=== PATIENT | male | born 1995 | race Two or more races ===

== ENCOUNTER 2016-11-23 19:13 | Emergency (ER) | payer MEDICAID ==
[~2016-11-23] VITALS: Ht 167.6 cm; Wt 68.0 kg
[~2016-11-23 19:13] MED LIST: ADVIL LIQUI-GE200 MG ORAL; ALBUTEROL SULF8.5 GM INH; AZITHROMYCIN250 MG ORAL; CLINDAMYCIN HC150 MG ORAL; GUAIFENESIN1200 MG PO; NKM; PHENERGAN6.25 MG/5 ORAL; PREDNISONE20 MG ORAL; PROMETHAZINE-C118 M1 ORAL; PROMETHAZINE-D118 ML ORAL; TYLENOL EXTRA500 MG ORAL; ZITHROMAX250 MG ORAL; ZOFRAN4 MG ORAL
[2016-11-23 19:35] VITALS: BP 130/67
--- NOTE | 2016-11-23 20:13 | Emergency Room Report ---
History of Present Illness General Chief Complaint: Upper Respiratory Illness Source: Patient Present Illness HPI The patient is a 20-year-old male presenting for cough. The patient has presented to this emergency department 6 times now for the same complaint. The patient has been diagnosed with pharyngitis, bronchitis, and pneumonia. The patient has been prescribed amoxicillin and azithromycin and states that symptoms to decrease but then returned. The pt states the cough syrup is what helps him the most. The patient denies any medical history including asthma. The patient states that the symptoms are now sore throat, cough, and subjective fever. The patient denies any other symptoms Allergies: Uncoded Allergies: PENICILLIN (Allergy, Unknown, 12/09/15) Patient History Past Medical History: see triage record Pertinent Family History: none Social History: Reports: smoking Reviewed Nursing Documentation: PMH: Agreed, PSxH: Agreed Nursing Documentation-PMH Past Medical History Deferred: Patient Unconscious Hx COPD: Yes - Bronchitis Review of Systems All Other Systems: negative except mentioned in HPI Physical Exam Vital Signs Date Time Temp Pulse Resp B/P Pulse Ox O2 Delivery O2 Flow Rate FiO2 11/23/16 19:18 99.0 120 18 125/73 94 Room Air Sp02 EP Interpretation: reviewed, normal General Appearance: no apparent distress, alert, GCS 15, non-toxic Head: normocephalic, atraumatic Eyes: bilateral eye PERRL, bilateral eye normal inspection ENT: hearing grossly normal, normal pharynx, no angioedema, normal voice, TMs + canals normal, uvula midline, moist mucus membranes Neck: full range of motion, supple/symm/no masses Respiratory: chest non-tender, lungs clear, normal breath sounds, no respiratory distress, no accessory muscle use, no wheezing, speaking full sentences Cardiovascular #1: regular rate, rhythm, no edema Musculoskeletal: back normal, gait/station normal, normal range of motion, non- tender Neurologic: alert, oriented x3, responsive, motor strength/tone normal, sensory intact, speech normal Psychiatric: judgement/insight normal, memory normal, mood/affect normal, no suicidal/homicidal ideation Skin: normal color, no rash, warm/dry, well hydrated Lymphatic: no adenopathy Medical Decision Making PA Attestation Dr. Bach is my supervising physician. Patient management was discussed with my supervising physician Diagnostic Impression: Primary Impression: Cough ER Course The patient is a 20-year-old male presenting for cough. Differential diagnosis include but not limited to pharyngitis, sinusitis, AOM, bronchitis, PNA PE: vitals wnl. NAD HEENT exam is unremarkable. No tonsillar edema or erythema. No exudate. No lymphadenopathy. Lungs are clear to auscultation bilaterally Chest x-ray remarkable The patient is asking for cough medication refill. The patient is advised that since he has been treated multiple times for the same symptoms without significant benefit, he will have to go elsewhere. The pt appears to value cough medication prescription as the most important reason for the visit. Chest X-Ray Diagnostic Results EP Interpretation: Yes Findings: no consolidation, no effusion, no pneumothorax Number of Views: 1 PA Scribe Text I am acting as scribe for my supervising physician. My supervising physician's interpretation of the chest xrays are there is no consolidation, no effusion, no acute cardiopulmonary disease, no pneumothorax Last Vital Signs Date Time Temp Pulse Resp B/P Pulse Ox O2 Delivery O2 Flow Rate FiO2 11/23/16 19:35 99.0 107 19 130/67 100 Room Air Status: improved Disposition: HOME, SELF-CARE Condition: Improved Referrals: [facility],REFERRING (PCP) NITHYA COPPOLA Nov 23, 2016 20:13
[2016-11-23 20:28] VITALS: BP 114/59
--- NOTE | 2016-11-24 11:56 | Diagnostic Imaging Report ---
Indication: Chest Pain Comparison: None A single view chest radiograph was obtained. Findings: Cardiomediastinal appearance is within normal limits for age. Pulmonary vascularity is appropriate. The diaphragmatic contour is smooth and costophrenic angles are sharp. No pleural effusions are identified. The bones are unremarkable. Impression: No acute findings
== END 2016-11-23 20:32 | disposition home or self-care (01) ==
LOC: EMR 19:30
DX: R05 Cough (principal); R07.0 Pain in throat; Z88.0 Allergy status to penicillin
CPT/HCPCS: 71010; 99283

== ENCOUNTER 2017-03-12 22:03 | Emergency (ER) | payer MEDICAID ==
[~2017-03-12] VITALS: Ht 170.2 cm; Wt 68.0 kg
--- NOTE | 2017-03-12 22:26 | Emergency Room Report ---
History of Present Illness General Chief Complaint: General Complaint Source: Patient Present Illness HPI Is a 21-year-old male with no past history. He presents here with chief complaint of a lump in his head. He found out about it couple days ago when he was filling it. No other injury. No nausea vomiting. No weight loss. He was concerned as when he came in. No trauma Allergies: Uncoded Allergies: PENICILLIN (Allergy, Unknown, 12/09/15) Patient History Past Medical History: see triage record, old chart reviewed Past Surgical History: none Pertinent Family History: none Social History: Reports: smoking Immunizations: other Reviewed Nursing Documentation: PMH: Agreed, PSxH: Agreed Nursing Documentation-PMH Hx COPD: Yes - Bronchitis Review of Systems Eye: Denies: blurred vision, eye pain ENT: Denies: ear pain, nose congestion, throat swelling Respiratory: Denies: cough, shortness of breath Cardiovascular: Denies: chest pain, palpitations Gastrointestinal: Denies: abdominal pain, diarrhea, nausea, vomiting Musculoskeletal: Denies: back pain, joint pain Skin: Denies: rash Neurological: Denies: headache, numbness Endocrine: Denies: increased thirst, increased urine Hematologic/Lymphatic: Denies: easy bruising All Other Systems: negative except mentioned in HPI Physical Exam Vital Signs Date Time Temp Pulse Resp B/P Pulse Ox O2 Delivery O2 Flow Rate FiO2 03/12/17 22:09 98.2 65 16 117/62 98 Room Air vitals normal Sp02 EP Interpretation: reviewed, normal General Appearance: well appearing, no apparent distress, alert Head: normocephalic, atraumatic Eyes: bilateral eye EOMI, bilateral eye PERRL ENT: hearing grossly normal, normal pharynx Neck: full range of motion, supple, no meningismus Respiratory: chest non-tender, lungs clear, normal breath sounds Cardiovascular #1: regular rate, rhythm, no murmur Gastrointestinal: normal bowel sounds, non tender, no mass, no organomegaly, no bruit, non-distended Musculoskeletal: back normal, gait/station normal, normal range of motion Psychiatric: mood/affect normal Skin: warm/dry Medical Decision Making Diagnostic Impression: Primary Impression: Encounter for generalized patient complaints Additional Impression: Normal exam ER Course Patient presents with a lump on his skull. What he pointed to is his Lamboidal suture. There is no infection. No trauma. patient Is reassured. Last Vital Signs Date Time Temp Pulse Resp B/P Pulse Ox O2 Delivery O2 Flow Rate FiO2 03/12/17 22:09 98.2 65 16 117/62 98 Room Air Status: unchanged Disposition: HOME, SELF-CARE Condition: Stable Additional Instructions: Followup with your Dr. in 7 days as needed. Return if worse. JAELYN GALVAN M.D. March 12, 2017 22:26
[2017-03-12 22:41] VITALS: BP 117/62
== END 2017-03-12 22:45 | disposition home or self-care (01) ==
LOC: EMR 22:25
DX: Z76.89 Persons encountering health services in other specified circumstances (principal); Z88.0 Allergy status to penicillin; R22.0 Localized swelling, mass and lump, head; Z72.0 Tobacco use; Z87.09 Personal history of other diseases of the respiratory system
CPT/HCPCS: 99282

== ENCOUNTER 2018-03-15 12:50 | Emergency (ER) | payer MEDICAID ==
[~2018-03-15] VITALS: Ht 170.2 cm; Wt 74.8 kg
[2018-03-15 13:02] VITALS: BP 120/74
--- NOTE | 2018-03-15 13:09 | Emergency Room Report ---
History of Present Illness General Chief Complaint: Flu Like Symptoms Present Illness HPI 22-year-old male patient presents to ER complaining of cough and sore throat past few days. reports coughing up sputum, denies hemoptysis. Denies fever. Denies other symptoms. Reports history of sick contacts at home. reports sore throat began after cough, reports able to eat and drink but painful to do so. Reports smokes marijuana frequently. denies chest pain, shortness breath, abdominal pain. Reports history of bronchitis, states has an inhaler but ran out of the medication. Allergies: Coded Allergies: PENICILLINS (Verified Allergy, Unknown, 03/13/17) Uncoded Allergies: PENICILLIN (Allergy, Unknown, 12/09/15) Patient History Past Medical History: see triage record Reviewed Nursing Documentation: PMH: Agreed; PSxH: Agreed Nursing Documentation-PMH Hx COPD: Yes - Bronchitis Review of Systems All Other Systems: negative except mentioned in HPI Physical Exam Vital Signs Date Time Temp Pulse Resp B/P (MAP) Pulse Ox O2 Delivery O2 Flow Rate FiO2 03/15/18 12:54 97.9 72 20 120/74 100 Room Air 97.9 Sp02 EP Interpretation: reviewed, normal General Appearance: well appearing, no apparent distress, alert, GCS 15, non- toxic Head: normocephalic, atraumatic ENT: no angioedema, normal voice, TMs + canals normal, uvula midline, moist mucus membranes, other - no erythema, no exudates Neck: full range of motion Respiratory: lungs clear, no rhonchi, no respiratory distress, no accessory muscle use, no wheezing, decreased breath sounds, speaking full sentences, other - no stridor Cardiovascular #1: regular rate, rhythm, no edema Musculoskeletal: back normal, digits/nails normal, gait/station normal, normal range of motion, non-tender Neurologic: alert, oriented x3, responsive, motor strength/tone normal, sensory intact Psychiatric: mood/affect normal Skin: no rash Lymphatic: no adenopathy Medical Decision Making PA Attestation Dr. Bach is my supervising Physician whom patient management has been discussed with. Diagnostic Impression: Primary Impression: Cough Additional Impression: Sore throat ER Course Pt presents to ED c/o cough and sore throat. DDX considered but are not limited to asthma, viral URI, influenza, bronchitis, strep throat, tonsillitis. low suspicion for pneumonia, does not require imaging at this time. VITAL SIGNS are WNL, patient is afebrile. Ordered breathing treatment and medication. ER COURSE PE: no wheezes rhonchi or rales, diminished breath sounds, history of bronchitis , never diagnosed with asthma, will order breathing treatment for patient. instructed patient to follow up with primary care provider and discuss further referral and treatment at that time. on physical exam, no erythematous TMs, light reflex intact bilaterally, no uvular deviation, no tonsillar exudates or pharyngeal erythema, low suspicion for tonsillitis or peritonsillar abscess. Informed patient sore throat likely related to cough symptoms, take Tylenol for pain and perform salt water gargles. Provide patient with viscous lidocaine in ER, patient reports throat feeling better. Patient provided with prednisone. Albuterol/Atrovent breathing treatment provided. Following treatment patient states no longer having difficulty with breathing, lungs clear to auscultation, no wheezes, rhonci or rales. Will discharge patient home with inhaler, steroid, and cough medication. Patient is resting comfortably in no acute distress, nontoxic appearing, speaking without difficulty. Patient okay for discharge to home. Don't smoke. DISCHARGE: -Rx given for Prednisone. -Rx provided for Albuterol MDI. -Rx provided for promethazine cough syrup. -Rx provided for Tylenol At this time pt is stable for d/c to home. Patient is resting comfortably in no acute distress, nontoxic appearing, able to answer questions without difficulty. Patient to take medications as instructed Will provide with patient care instructions and any necessary prescriptions. Care plan and follow-up instructions provided. Patient instructed to follow-up with primary care provider in 3 - 5 days. Patient questions asked and answered. Patient reports understanding and agreement to treatment plan. ER precautions given. Patient instructed to return to ER immediately for any new or worsening of symptoms including but not limited to increasing SOB, persistent fever. - Please note that this Emergency Department Report was dictated using [employer] installer technology software, occasionally this can lead to erroneous entry secondary to interpretation by the dictation equipment. Last Vital Signs Date Time Temp Pulse Resp B/P (MAP) Pulse Ox O2 Delivery O2 Flow Rate FiO2 03/15/18 13:02 72 20 Room Air 03/15/18 13:02 97.9 120/74 100 97.9 Status: improved Disposition: HOME, SELF-CARE Condition: Stable Scripts Acetaminophen* (TYLENOL EXTRA STRENGTH*) 500 Mg Tablet 500 MG ORAL Q8H PRN for Prn Headache/Temp > 101, #30 TAB 0 Refills Prov: Jan Alexander 03/15/18 Albuterol Sulfate* (ALBUTEROL SULFATE MDI*) 8.5 Gm Hfa.aer.ad 2 PUFF INH Q6H, #1 INH 0 Refills Prov: Jan Alexander 03/15/18 Promethazine Hcl (PROMETHAZINE HCL*) 6.25 Mg/5 Ml Syrup 5 ML ORAL Q8H, #120 ML 0 Refills Prov: Jan Alexander 03/15/18 Prednisone* (PREDNISONE*) 20 Mg Tablet 40 MG ORAL DAILY for 4 Days, #8 TAB Prov: Jan Alexander 03/15/18 Referrals: [facility],REFERRING (PCP) Patient Instructions: Asthma, Adult, [id number], Cough, Adult, [id number], Sore Throat, [id number] Additional Instructions: Followup with primary care provider in 3 -5 days. Contact insurance provider to establish care with primary care provider. Take medications as directed. Begin taking prednisone tomorrow, first dose given in ER. Saltwater gargles for sore throat. Do not smoke. Patient questions asked and answered. ER precautions given, patient instructed to return to ER immediately for any new or worsening of symptoms. Jan Alexander March 15, 2018 13:09
[2018-03-15] MEDS ORDERED: Lidocaine 2% Visc 15ml soln ORAL ONE (13:15)
[2018-03-15] MEDS ORDERED: Albuterol/Ipratropium 3ml neb HHN ONE (13:15)
[2018-03-15] MEDS ORDERED: Acetaminophen 500mg (ES) tab ORAL ONE (13:15)
[2018-03-15] MEDS ORDERED: PREDNISONE20 MG ORAL (13:39)
[2018-03-15] MEDS ORDERED: ALBUTEROL SULF8.5 GM INH (13:39)
[2018-03-15] MEDS ORDERED: PROMETHAZI6.25 MG/1 ORAL (13:39)
[2018-03-15] MEDS ORDERED: TYLENOL EXTRA500 MG ORAL (13:42)
[2018-03-15 13:54] VITALS: BP 120/74
== END 2018-03-15 13:55 | disposition home or self-care (01) ==
LOC: EMR 13:04
DX: R05 Cough (principal); J02.9 Acute pharyngitis, unspecified; Z88.0 Allergy status to penicillin; J44.9 Chronic obstructive pulmonary disease, unspecified
CPT/HCPCS: 94640; 94664; 99284; J7512; J7620

== ENCOUNTER 2019-09-27 20:24 | Emergency (ER) | payer MEDICAID ==
[~2019-09-27] VITALS: Ht 170.2 cm; Wt 72.6 kg
[~2019-09-27 20:24] MED LIST changes: +PROMETHAZI6.25 MG/1 ORAL
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
[2019-09-27 20:43] VITALS: BP 123/81
[2019-09-27] MEDS ORDERED: Tetanus/Diptheria/Pertussis IM ONE (20:45)
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
[2019-09-27] MEDS ORDERED: IBUPROFEN600 MG ORAL (20:55)
[2019-09-27] MEDS ORDERED: MUPIROCIN15 GM TOPIC (20:55)
[2019-09-27] MEDS ORDERED: PROMETHAZI6.25 MG/1 ORAL (20:55)
[2019-09-27] MEDS ORDERED: ZITHROMAX250 MG ORAL (20:55)
[2019-09-27 21:00] VITALS: BP 125/81
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
== END 2019-09-27 21:10 | disposition home or self-care (01) ==
LOC: EMR 21:06
DX: S10.91XA Abrasion of unspecified part of neck, initial encounter (principal); S60.512A Abrasion of left hand, initial encounter; S60.511A Abrasion of right hand, initial encounter; S50.02XA Contusion of left elbow, initial encounter; S50.01XA Contusion of right elbow, initial encounter; S20.229A Contusion of unspecified back wall of thorax, initial encounter; Y04.8XXA Assault by other bodily force, initial encounter; Y92.9 Unspecified place or not applicable; Z88.0 Allergy status to penicillin; J02.0 Streptococcal pharyngitis; D22.4 Melanocytic nevi of scalp and neck; Z23 Encounter for immunization
CPT/HCPCS: 90471; 90715; Z7502; 99282

== ENCOUNTER 2020-11-05 10:17 | Emergency (ER) | payer MEDICAID ==
[~2020-11-05] VITALS: Ht 170.2 cm; Wt 72.6 kg
[~2020-11-05 10:17] MED LIST changes: +IBUPROFEN600 MG ORAL; +MUPIROCIN15 GM TOPIC
[2020-11-05] MEDS ORDERED: BENADRYL25 MG ORAL (10:35)
[2020-11-05] MEDS ORDERED: PREDNISONE20 MG ORAL (10:35)
--- NOTE | 2020-11-05 10:44 | Emergency Room Report ---
History of Present Illness General Chief Complaint: Skin Rash/Abscess Source: Patient Present Illness HPI Patient is a 24-year-old male who presents to the ER complaining of insect bite. Patient states that he saw an insect bite his upper middle lip yesterday. Since then he complains of swelling and itchiness. He denies any intraoral swelling. He denies any fever or chills. He denies any trauma. He denies any changes to his voice or drooling or difficulty swallowing. Allergies: Coded Allergies: PENICILLINS (Verified Allergy, Unknown, 03/13/17) Uncoded Allergies: PENICILLIN (Allergy, Unknown, 12/09/15) COVID-19 Screening Contact w/high risk pt: No Experienced COVID-19 symptoms?: No COVID-19 Testing performed CLUTCH MECHANIC: No Patient History Reviewed Nursing Documentation: PMH: Agreed; PSxH: Agreed Nursing Documentation-PMH Past Medical History: No History, Except For Hx COPD: Yes - Bronchitis Review of Systems All Other Systems: negative except mentioned in HPI Physical Exam Vital Signs Date Time Temp Pulse Resp B/P (MAP) Pulse Ox O2 Delivery O2 Flow Rate FiO2 11/05/20 10:25 97.2 71 16 127/82 (97) 99 Room Air Sp02 EP Interpretation: reviewed, normal General Appearance: no apparent distress, alert, GCS 15, non-toxic Head: normocephalic, atraumatic Eyes: bilateral eye normal inspection, bilateral eye PERRL ENT: hearing grossly normal, normal pharynx, normal voice, other - Upper middle lip swelling appears to have a bite quyen no purulent discharge no vesicles no ulcerations Neck: full range of motion, supple/symm/no masses Respiratory: chest non-tender, lungs clear Cardiovascular #1: regular rate, rhythm Gastrointestinal: non tender, soft Rectal: deferred Musculoskeletal: normal range of motion 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 I have explained that their evaluation and treatment in the emergency department today is an important step towards them achieving better health but that their evaluation today is not intended to replace further evaluation and treatment by a physician in their local clinic. I have explained that while the current findings suggest no immediate life threatening emergency they will require further evaluation and treatment by a physician of their choice in their area. They understand that it will be necessary for them to review the final reports of their ED visit with their clinic physician. We have reviewed indications for return to the Emergency Department. I have explained that additional time may need to pass and/or additional testing as an outpatient may be necessary before a definitive diagnosis can be made. They tell me they are willing to follow up as instructed within the timeframe I recommend. They appear to understand what we discussed. Additionally they understand that if they are unable to be seen by an outpatient physician they are welcome, and in fact should, return to the Emergency Department for a repeat evaluation. The patient is stable at time of discharge. Last Vital Signs Date Time Temp Pulse Resp B/P (MAP) Pulse Ox O2 Delivery O2 Flow Rate FiO2 11/05/20 10:25 97.2 71 16 127/82 (97) 99 Room Air Disposition: HOME, SELF-CARE Condition: Stable Scripts Prednisone* (PREDNISONE*) 20 Mg Tablet 40 MG ORAL DAILY, #5 TAB Prov: Jacki Willett M.D. 11/05/20 Diphenhydramine Hcl* (BENADRYL*) 25 Mg Capsule 25 MG ORAL Q6H PRN for Itching, #20 CAP Prov: Jacki Willett M.D. 11/05/20 Referrals: [facility] Additional Instructions: The patient was provided with discharge instructions, notified to follow-up with a primary care doctor and or specialist in the next 24-48 hours, and to return to the ED if they have worsening of their symptoms. Please note that this report is being documented using [employer] technology. This can lead to erroneous entry secondary to incorrect interpretation by the dictating instrument. Jacki Willett M.D. Nov 05, 2020 10:44
[2020-11-05 11:27] VITALS: BP 127/82
== END 2020-11-05 10:50 | disposition home or self-care (01) ==
LOC: EMR 10:37
DX: T63.481A Toxic effect of venom of other arthropod, accidental (unintentional), initial encounter (principal); R22.0 Localized swelling, mass and lump, head; J44.9 Chronic obstructive pulmonary disease, unspecified; Z88.0 Allergy status to penicillin
CPT/HCPCS: J7512; Z7502; 99282

== ENCOUNTER 2020-11-14 12:49 | Emergency (ER) | payer MEDICAID ==
[~2020-11-14] VITALS: Ht 170.2 cm; Wt 72.6 kg
[~2020-11-14 12:49] MED LIST changes: +BENADRYL25 MG ORAL
[2020-11-14 12:57] VITALS: BP 132/78
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
[2020-11-14] MEDS ORDERED: Methocarbamol 750mg tab ORAL ONE (13:15)
[2020-11-14] MEDS ORDERED: Ketorolac 30mg Inj IM ONE (13:15)
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
[2020-11-14] MEDS ORDERED: PROMETHAZI6.25 MG/1 ORAL (13:58)
[2020-11-14] MEDS ORDERED: ROBAXIN-500MG ORAL (13:58)
[2020-11-14] MEDS ORDERED: IBUPROFEN600 M1 ORAL (13:58)
[2020-11-14 14:15] VITALS: BP 128/72
--- NOTE | 2020-11-14 14:15 | NUR ---
ED Nurse Note: Pt cleared by ERPA for discharge. DC instructions/prescription was given and explained to pt and verbalized understanding of teachings. All medical deviecs such as ID band removed. Pt is AAO x4, ambulatory and left with all personal belongings.
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
== END 2020-11-14 14:15 | disposition home or self-care (01) ==
LOC: EMR 13:20
DX: S16.1XXA Strain of muscle, fascia and tendon at neck level, initial encounter (principal); S39.012A Strain of muscle, fascia and tendon of lower back, initial encounter; V43.52XA Car driver injured in collision with other type car in traffic accident, initial encounter; Y92.410 Unspecified street and highway as the place of occurrence of the external cause; R05 Cough; Z88.0 Allergy status to penicillin
CPT/HCPCS: 72020; 72040; 96372; J1885; Z7502; 99284